=== PATIENT | female | born 1940 | race Caucasian/White ===

== ENCOUNTER → 2017-09-06 | Outpatient (CLI) | payer MEDICARE, OTHER ==
[~2017-09-06] MED LIST: ALEN70; ATEN25 PO; Benefiber98 GM PO; CELE200 PO; CYAN100; CYAN1000I; DIPATR PO; FENO145; FISH1000; FURO20; GABA300 PO; HYDACE5 PO; HYDR1TAB94 PO; LEVFLO500 PO; LEVSOD50; LISI10; MONT10T; MULVITA; NAPR500; OMEP20ER; PARO20; POTCHL10ER; PRED5 PO; PROM25 PO; Percocet 5-3251 EACH PO; Pravachol40 MG; ROSU10TA; RXHYDACE PO; RXPHEN200 PO; RXPROM25S PR; TOLT4; TRAM50; VITAMIN D-32000 UNIT
== END | disposition home or self-care (01) ==
LOC: LAB EV 12:35
DX: S91.101A Unspecified open wound of right great toe without damage to nail, initial encounter (principal)
CPT/HCPCS: 87070; 87205

== ENCOUNTER → 2018-06-30 | Outpatient (CLI) | payer MEDICARE, OTHER | END | disposition home or self-care (01) | LOC: LAB EV 17:53 → LAB SHORT 17:53 | DX: N39.0 Urinary tract infection, site not specified (principal) | CPT/HCPCS: 87077; 87086; 87186 ==

== ENCOUNTER → 2018-07-25 | Outpatient (CLI) | payer MEDICARE, OTHER ==
[2018-07-25 10:25] LABS: BASOPHILS ABSOLUTE AUTO 0.04 K/mm3 (0.00-0.23); BASOPHILS PERCENT AUTO 1 % (0-2); EOSINOPHILS ABSOLUTE AUTO 0.16 K/mm3 (0.00-0.68); EOSINOPHILS PERCENT AUTO 2 % (0-6); Hematocrit 38.1 % (33.0-51.0); Hemoglobin 12.5 g/dL (11.5-16.0); IMMATURE GRAN ABSOLUTE AUTO 0.02 K/mm3 (0.00-0.10); IMMATURE GRAN PERCENT AUTO 0 % (0-1); LYMPHOCYTES ABSOLUTE AUTO 1.37 K/mm3 (0.84-5.20); LYMPHOCYTES PERCENT AUTO 20 % (21-46); MONOCYTES PERCENT AUTO 7 % (4-13); Mean Corpuscular HGB 30.3 pg (26.0-34.0); Mean Corpuscular HGB Conc 32.8 g/dL (31.5-36.5); Mean Corpuscular Volume 92 fL (80-100); Mean Platelet Volume 9.7 fL (9.1-12.4); NEUTROPHILS ABSOLUTE AUTO 4.87 K/mm3 (1.96-9.15); NEUTROPHILS PERCENT AUTO 70 % (41-73); Platelet Count 273 K/mm3 (150-400); RDW Coefficient Variation 12.1 % (11.7-14.2); RDW Standard Deviation 40.7 fL (35.1-46.3); Red Blood Cell Count 4.13 M/mm3 (3.80-5.20); White Blood Cell Count 6.96 K/mm3 (4.00-11.30)
[2018-07-25 13:53] LABS: Alanine Aminotransfer (ALT/SGP 16 U/L (12-78); Albumin, Blood 3.3 g/dL (3.4-5.0); Albumin/Globulin Ratio 0.9 (0.8-1.8); Alk Phos 70 U/L (40-126); Anion Gap 9 mmol/L (6-16); Aspartate Aminotrans (AST/SGOT 16 U/L (12-37); Bilirubin, Total 0.6 mg/dL (0.1-1.0); Blood Urea Nitrogen 14 mg/dL (8-24); Bun/Creatinine Ratio 15.7 (12.0-20.0); CO2, Blood 28 mmol/L (21-32); Calcium, Blood 8.7 mg/dL (8.5-10.1); Chloride, Blood 104 mmol/L (98-108); Creatinine, Blood 0.89 mg/dL (0.40-1.00); Globulin, Blood 3.5 g/dL (2.2-4.0); Glomerular Filtration Rate >60 (60-); Glucose, Blood 104 mg/dL (70-99); Potassium, Blood 4.1 mmol/L (3.5-5.5); Sodium, Blood 141 mmol/L (136-145); Total Protein, Blood 6.8 g/dL (6.4-8.2)
== END | disposition home or self-care (01) ==
LOC: LAB SHORT 10:19 → LAB EV 10:19
PROVIDERS: General Practice
DX: M35.3 Polymyalgia rheumatica (principal)
CPT/HCPCS: 80053; 85025; 85651; 86140; 87070

== ENCOUNTER → 2018-08-04 | Outpatient (CLI) | payer MEDICARE, OTHER ==
[2018-08-04 12:20] LABS: BASOPHILS ABSOLUTE AUTO 0.04 K/mm3 (0.00-0.23); BASOPHILS PERCENT AUTO 1 % (0-2); EOSINOPHILS ABSOLUTE AUTO 0.09 K/mm3 (0.00-0.68); EOSINOPHILS PERCENT AUTO 1 % (0-6); Hematocrit 39.2 % (33.0-51.0); Hemoglobin 12.9 g/dL (11.5-16.0); IMMATURE GRAN ABSOLUTE AUTO 0.02 K/mm3 (0.00-0.10); IMMATURE GRAN PERCENT AUTO 0 % (0-1); LYMPHOCYTES ABSOLUTE AUTO 1.16 K/mm3 (0.84-5.20); LYMPHOCYTES PERCENT AUTO 14 % (21-46); MONOCYTES ABSOLUTE AUTO 0.45 K/mm3 (0.16-1.47); MONOCYTES PERCENT AUTO 5 % (4-13); Mean Corpuscular HGB 30.5 pg (26.0-34.0); Mean Corpuscular HGB Conc 32.9 g/dL (31.5-36.5); Mean Corpuscular Volume 93 fL (80-100); Mean Platelet Volume 9.7 fL (9.1-12.4); NEUTROPHILS ABSOLUTE AUTO 6.53 K/mm3 (1.96-9.15); NEUTROPHILS PERCENT AUTO 79 % (41-73); Platelet Count 255 K/mm3 (150-400); RDW Coefficient Variation 12.6 % (11.7-14.2); RDW Standard Deviation 42.6 fL (35.1-46.3); Red Blood Cell Count 4.23 M/mm3 (3.80-5.20); White Blood Cell Count 8.29 K/mm3 (4.00-11.30)
[2018-08-04 12:33] LABS: Anion Gap 10 mmol/L (6-16); Blood Urea Nitrogen 13 mg/dL (8-24); Bun/Creatinine Ratio 13.4 (12.0-20.0); CO2, Blood 29 mmol/L (21-32); Calcium, Blood 9.2 mg/dL (8.5-10.1); Chloride, Blood 103 mmol/L (98-108); Creatinine, Blood 0.97 mg/dL (0.40-1.00); Glomerular Filtration Rate 56 (60-); Glucose, Blood 113 mg/dL (70-99); Potassium, Blood 4.1 mmol/L (3.5-5.5); Sodium, Blood 142 mmol/L (136-145); Troponin I <0.015 ng/mL (0.000-0.040)
== END | disposition home or self-care (01) ==
LOC: LAB EV 12:16 → LAB SHORT 12:16
PROVIDERS: Family Medicine
DX: I10 Essential (primary) hypertension (principal)
CPT/HCPCS: 80048; 84484; 85025

== ENCOUNTER 2018-08-24 18:36 | Emergency (ER) | payer MEDICARE, OTHER ==
[~2018-08-24] VITALS: Ht 154.9 cm; Wt 68.0 kg
[~2018-08-24 18:36] MED LIST changes: -LEVSOD50; +LEVSOD50 PO; +Norco 5-325 Ta1 EACH PO; +OMEPRAZOLE MAGN20 MG PO; +Prednisone20 MG PO
[2018-08-24] MEDS ORDERED: IRBESARTAN-HCT1 EACH PO (19:41)
[2018-08-24] MEDS ORDERED: HYDR-86 PO (19:42)
[2018-08-24] MEDS ORDERED: CYAN500 PO (19:44)
[2018-08-24] MEDS ORDERED: FISH OIL 1,2001 EACH PO (19:44)
[2018-08-24] MEDS ORDERED: CHOL10002 PO (19:45)
[2018-08-24] MEDS ORDERED: ZINC15 PO (19:46)
[2018-08-24] MEDS ORDERED: MAGNESIUM400 MG PO (19:46)
[2018-08-24] MEDS ORDERED: PRED5 PO (19:47)
[2018-08-24] MEDS ORDERED: Prednisone20 MG PO (19:56)
[2018-08-24] MEDS ORDERED: Percocet 5-3251 EACH PO (19:56)
== END 2018-08-24 20:05 | disposition home or self-care (01) ==
LOC: ER 18:36
DX: M35.3 Polymyalgia rheumatica (principal); Z88.0 Allergy status to penicillin; Z88.2 Allergy status to sulfonamides; Z88.5 Allergy status to narcotic agent; Z88.8 Allergy status to other drugs, medicaments and biological substances; Z79.899 Other long term (current) drug therapy; Z79.82 Long term (current) use of aspirin; Z79.52 Long term (current) use of systemic steroids; I10 Essential (primary) hypertension
CPT/HCPCS: 99283

== ENCOUNTER 2018-08-31 12:54 | Inpatient (IN) | payer MEDICARE, OTHER ==
[~2018-08-31] VITALS: Ht 154.9 cm; Wt 65.8 kg
[~2018-08-31 12:54] MED LIST changes: -CELE200 PO; +CHOL10002 PO; +CYAN500 PO; +FISH OIL 1,2001 EACH PO; +Galzin25 MG PO; +HYDR-86 PO; +IRBESARTAN-HCT1 EACH PO; +MAGNESIUM400 MG PO; -Pravachol40 MG
[2018-08-31 13:51] LABS: Source, Urine Catheter
[2018-08-31 14:02] LABS: Bilirubin, Urine Neg (Neg); Blood, Urine 1+ (Neg); Glucose Qualitative, Urine Neg (Neg); Ketones, Urine Neg (Neg); Leukocyte Esterase, Urine 3+ (Neg); Nitrite, Urine Pos (Neg); Protein, Urine 1+ (Neg); Specific Gravity, Urine 1.015 (1.003-1.022); Urobilinogen, Urine NORM (Normal)
[2018-08-31 14:05] LABS: BASOPHILS ABSOLUTE AUTO 0.02 K/mm3 (0.00-0.23); BASOPHILS PERCENT AUTO 0 % (0-2); EOSINOPHILS ABSOLUTE AUTO 0.22 K/mm3 (0.00-0.68); EOSINOPHILS PERCENT AUTO 2 % (0-6); Hemoglobin 11.9 g/dL (11.5-16.0); IMMATURE GRAN PERCENT AUTO 1 % (0-1); LYMPHOCYTES ABSOLUTE AUTO 3.01 K/mm3 (0.84-5.20); LYMPHOCYTES PERCENT AUTO 28 % (21-46); MONOCYTES ABSOLUTE AUTO 0.87 K/mm3 (0.16-1.47); MONOCYTES PERCENT AUTO 8 % (4-13); Mean Corpuscular HGB 29.5 pg (26.0-34.0); Mean Corpuscular HGB Conc 31.3 g/dL (31.5-36.5); Mean Corpuscular Volume 94 fL (80-100); Mean Platelet Volume 9.4 fL (9.1-12.4); NEUTROPHILS ABSOLUTE AUTO 6.74 K/mm3 (1.96-9.15); NEUTROPHILS PERCENT AUTO 62 % (41-73); Platelet Count 362 K/mm3 (150-400); RDW Coefficient Variation 12.9 % (11.7-14.2); RDW Standard Deviation 44.5 fL (35.1-46.3); Red Blood Cell Count 4.04 M/mm3 (3.80-5.20); White Blood Cell Count 10.96 K/mm3 (4.00-11.30)
[2018-08-31 14:16] LABS: Appearance, Urine Hazy (Clear); Color, Urine Yellow (P-Yellow)
[2018-08-31 14:24] LABS: Magnesium, Blood 2.3 mg/dL (1.6-2.4)
[2018-08-31 14:25] LABS: Alanine Aminotransfer (ALT/SGP 20 U/L (12-78); Albumin, Blood 2.7 g/dL (3.4-5.0); Albumin/Globulin Ratio 0.8 (0.8-1.8); Alk Phos 60 U/L (50-136); Anion Gap 9 mmol/L (6-16); Aspartate Aminotrans (AST/SGOT 8 U/L (12-37); Bilirubin, Total 0.5 mg/dL (0.1-1.0); Blood Urea Nitrogen 40 mg/dL (8-24); Bun/Creatinine Ratio 24.4 (12.0-20.0); CO2, Blood 22 mmol/L (21-32); CPK Creatine Kinase 16 U/L (26-193); Calcium, Blood 8.4 mg/dL (8.5-10.1); Chloride, Blood 101 mmol/L (98-108); Creatinine, Blood 1.64 mg/dL (0.40-1.00); Globulin, Blood 3.4 g/dL (2.2-4.0); Glomerular Filtration Rate 32 (60-); Glucose, Blood 102 mg/dL (70-99); Potassium, Blood 4.8 mmol/L (3.5-5.5); Sodium, Blood 132 mmol/L (136-145); Total Protein, Blood 6.1 g/dL (6.4-8.2); Troponin I <0.015 ng/mL (0.000-0.040)
[2018-08-31 14:36] LABS: Creatine Kinase MB <1.0 ng/mL (0.0-3.6); Creatine Kinase MB Index Unable to Calculate (0.0-4.0)
[2018-08-31 14:40] LABS: Base Excess Venous -3.7 mmol/L; Bicarbonate Venous 21.5 mmol/L (24.0-30.0); PCO2 Venous 41.8 mmHg (38-42); PO2 Venous 135 mmHg (38-42); pH Blood Venous 7.33 (7.34-7.37)
[2018-08-31 14:41] LABS: White Blood Cells, Urine 50-100 /hpf (0-5)
[2018-08-31 14:42] LABS: Red Blood Cells, Urine 0-2 /hpf (0-2); Squamous Epithelial Cells Many /hpf (Few)
[2018-08-31 14:43] LABS: Amorphous Light (0-Heavy); Bacteria Few /hpf; Mucus Light (0-Heavy)
[2018-08-31 14:44] LABS: Transitional Epithelial Cells Few /hpf (0-Rare)
[2018-08-31] MEDS ORDERED: PRAVASTATIN SOD10 MG PO (15:30)
[2018-08-31] MEDS ORDERED: CLON.1 PO (15:31)
[2018-08-31] MEDS ORDERED: IRBE150 PO (15:32)
[2018-08-31] MEDS ORDERED: CELE200 PO (15:32)
[2018-08-31] MEDS ORDERED: TRAZ50 PO (15:34)
[2018-08-31] MEDS ORDERED: CALCIUM PO (16:18)
[2018-08-31] MEDS ORDERED: PRED20 PO (16:19)
[2018-08-31] MEDS ORDERED: Percocet 5-3251 EACH PO (16:20)
--- NOTE | 2018-08-31 20:12 | NUR ---
24-HR URINE PT VOIDED. DISCARDING THIS VOID AND THEN STARTING 24 HR URINE NOW, 08/31 @ 1999.
[2018-09-01 05:16] LABS: BASOPHILS ABSOLUTE AUTO 0.01 K/mm3 (0.00-0.23); BASOPHILS PERCENT AUTO 0 % (0-2); EOSINOPHILS ABSOLUTE AUTO 0.03 K/mm3 (0.00-0.68); EOSINOPHILS PERCENT AUTO 0 % (0-6); Hematocrit 35.1 % (33.0-51.0); Hemoglobin 11.3 g/dL (11.5-16.0); IMMATURE GRAN ABSOLUTE AUTO 0.08 K/mm3 (0.00-0.10); IMMATURE GRAN PERCENT AUTO 1 % (0-1); LYMPHOCYTES ABSOLUTE AUTO 1.42 K/mm3 (0.84-5.20); LYMPHOCYTES PERCENT AUTO 12 % (21-46); MONOCYTES ABSOLUTE AUTO 0.71 K/mm3 (0.16-1.47); MONOCYTES PERCENT AUTO 6 % (4-13); Mean Corpuscular HGB 30.6 pg (26.0-34.0); Mean Corpuscular HGB Conc 32.2 g/dL (31.5-36.5); Mean Corpuscular Volume 95 fL (80-100); Mean Platelet Volume 9.4 fL (9.1-12.4); NEUTROPHILS PERCENT AUTO 81 % (41-73); Platelet Count 328 K/mm3 (150-400); RDW Coefficient Variation 12.8 % (11.7-14.2); Red Blood Cell Count 3.69 M/mm3 (3.80-5.20); White Blood Cell Count 11.95 K/mm3 (4.00-11.30)
[2018-09-01 05:43] LABS: Albumin, Blood 2.4 g/dL (3.4-5.0); Anion Gap 5 mmol/L (6-16); Blood Urea Nitrogen 27 mg/dL (8-24); CO2, Blood 25 mmol/L (21-32); Calcium, Blood 8.2 mg/dL (8.5-10.1); Chloride, Blood 109 mmol/L (98-108); Glomerular Filtration Rate 57 (60-); Glucose, Blood 115 mg/dL (70-99); Magnesium, Blood 2.2 mg/dL (1.6-2.4); Phosphorus, Blood 3.2 mg/dL (2.5-4.9); Potassium, Blood 4.7 mmol/L (3.5-5.5); Sodium, Blood 139 mmol/L (136-145); Troponin I <0.015 ng/mL (0.000-0.040)
[2018-09-01 05:47] LABS: Cortisol, AM 11.9 ug/dL (6.7-22.6)
[2018-09-01 05:48] LABS: Thyroid Stimulating Hormone 0.477 uIU/mL (0.360-4.800)
--- NOTE | 2018-09-01 05:54 | NUR ---
SHIFT SUMMARY: PT IS A&O, CALL LIGHT APPROP. 1 PER SBA TO [facility]. TELE IN PLACE; SINUS RICARDA @ 47 BPM PER HOSPICE COMMUNITY LIAISON. PER PT, HR IS NORMALLY LOW. HOWEVER, BP HAS BEEN INCONSISTENT FOR SEVERAL WKS PER PT. BP TONIGHT IS 149/60 AND 121/51. RESP E/U ON RA. CONSULT CALLED IN TO DR GUZMAN PER DR JOSEPH. MEGAN IN TO SEE PT THIS EVENING. 24-HR URINE COLLECTION STARTED 08/29 @ 1999. URINE IS CURRENTLY ON ICE. BLADDER SCAN SHOWS 364 ML. ORDERED TO CALL IF >[address] GUZMAN OF FINDINGS IN PERSON BUT THAT PT IS VOIDING FREQUENTLY AND DR GUZMAN GAVE NO FURTHER ORDERS. ORTHOSTATIC VITALS DONE. SMALL DROP BETWEEN [id number] VITALS; DOC IS AWARE. NS RUNNING @ 100 ML/HR. PT TO HAVE CT ANGIOGRAM OF KIDNEYS AND ADRENAL GLANDS; RENAL & BLADDER US; AND RENAL ARTERY DUPLEX SCAN TODAY. NO OTHER CHANGES TO REPORT. WILL CONT TO MONITOR AND PROVIDE CARE UNTIL PRESUMED BY ONCOMING RN.
--- NOTE | 2018-09-01 10:25 | NUR ---
PT TO IMAGING FOR CT SCAN VIA [facility]
[2018-09-02 05:31] LABS: Hematocrit 31.8 % (33.0-51.0); Hemoglobin 10.1 g/dL (11.5-16.0)
[2018-09-02 05:52] LABS: Albumin, Blood 2.4 g/dL (3.4-5.0); Anion Gap 7 mmol/L (6-16); Blood Urea Nitrogen 20 mg/dL (8-24); Bun/Creatinine Ratio 24.8 (12.0-20.0); CO2, Blood 23 mmol/L (21-32); Calcium, Blood 8.5 mg/dL (8.5-10.1); Chloride, Blood 111 mmol/L (98-108); Creatinine, Blood 0.81 mg/dL (0.40-1.00); Glomerular Filtration Rate >60 (60-); Glucose, Blood 97 mg/dL (70-99); Phosphorus, Blood 2.7 mg/dL (2.5-4.9); Potassium, Blood 4.6 mmol/L (3.5-5.5); Sodium, Blood 141 mmol/L (136-145)
--- NOTE | 2018-09-02 07:37 | NUR ---
SHIFT SUMMARY: NO ACUTE CHANGES TONIGHT. PT CONTINUES TO FEEL BETTER AND HAVE IMPROVED STRENGTH. TELE IN PLACE; SINUS RICARDA @ 53 BPM. 24-HR URINE COMPLETE AND SENT 09/02 @ 1999. INDEPENDENT TO [facility]. PERCOCET ADMNISTERED 2X FOR SHOULDER AND BACK PAIN. MAINTENANCE FLUIDS D/C'D THIS AM PER DR GUZMAN. WILL CONT TO MONITOR AND PROVIDE CARE UNTIL PRESUMED BY ONCOMING RN,
[2018-09-02 08:17] LABS: COMPLEMENT C3, SERUM 141 mg/dL (82-167); COMPLEMENT C3, SERUM 145 mg/dL (82-167); COMPLEMENT C4, SERUM 31 mg/dL (14-44)
[2018-09-02] MEDS ORDERED: MIDO5 PO (09:05)
[2018-09-02] MEDS ORDERED: CHOL10002 PO (09:05)
[2018-09-02] MEDS ORDERED: TRAZ50 PO (09:06)
[2018-09-02] MEDS ORDERED: CALC.25 PO (09:06)
[2018-09-02] MEDS ORDERED: PRED10 PO (09:07)
[2018-09-02] MEDS ORDERED: CLON.1 PO (09:11)
--- NOTE | 2018-09-02 11:46 | NUR ---
DISCHARGE THIS RN EXPLAINED DISCHARGE INSTRUCTIONS AND MEDICATIONS TO PT AND SHE REPORTS SHE UNDERSTANDS. PT WAS UPSET THAT THE PHYSICIAN STOPPED SOME OF HER MEDICATIONS FOR HER ARTHRITIS AND DECREASED MEDICATIONS FOR HER PMR. THIS RN ENCOURAGED PT TO CALL HER PRIMARY PHYSICIAN TO TALK WITH HIM ABOUT THE MEDICATION CHANGES. IV REMOVED WITHOUT DIFFICULTY. PT TRANSFERRED TO PRIVATE VEHICLE VIA WHEELCHAIR. PT'S BELONGINGS WITH PT AND PT'S DAUGHTER.
[2018-09-03 12:27] LABS: ANTI-DSDNA ANTIBODIES <1 IU/mL (0-9); RNP ANTIBODIES <0.2 AI (0.0-0.9); SJOGREN'S ANTI-SS-A <0.2 AI (0.0-0.9); SJOGREN'S ANTI-SS-B <0.2 AI (0.0-0.9); SMITH ANTIBODIES <0.2 AI (0.0-0.9)
[2018-09-04 07:14] LABS: ANTIGLOMERULAR BM AB 3 units (0-20)
[2018-09-04 13:07] LABS: ALDOS/RENIN RATIO <1.3 (0.0-30.0); ALDOSTERONE <1.0 ng/dL (0.0-30.0)
[2018-09-04 18:07] LABS: METANEPHRINE, UR 20 ug/L (Undefined)
[2018-09-05 00:08] LABS: METANEPHRINE, PL 12 pg/mL (0-62); NORMETANEPHRINE, PL 14 pg/mL (0-145)
[2018-09-08 13:07] LABS: ANA DIRECT Negative (Negative); ANTIMYELOPEROXIDASE (MPO) ABS <9.0 U/mL (0.0-9.0); ANTIPROTEINASE 3 (PR-3) ABS <3.5 U/mL (0.0-3.5); ATYPICAL PANCA <1:20 titer (Neg:<1:20); CYTOPLASMIC (C-ANCA) <1:20 titer (Neg:<1:20); PERINUCLEAR (P-ANCA) <1:20 titer (Neg:<1:20)
[2018-09-08 14:07] LABS: 25-HYDROXY, VITAMIN D 55 ng/mL (.); 25-HYDROXY, VITAMIN D-2 <1.0 ng/mL (.); 25-HYDROXY, VITAMIN D-3 54 ng/mL (.)
[2018-09-10 13:07] LABS: CREATININE, URINE 28.7 mg/dL (Not Estab.)
== END 2018-09-02 10:57 | disposition home or self-care (01) | DRG 314 ==
LOC: ER 12:54 → MEDS 16:56
PROVIDERS: Emergency Medicine; Internal Medicine Nephrology; ADMIT Family Medicine
DX: I95.9 Hypotension, unspecified (principal); N17.0 Acute kidney failure with tubular necrosis; N39.0 Urinary tract infection, site not specified; E87.1 Hypo-osmolality and hyponatremia; E21.3 Hyperparathyroidism, unspecified; B96.20 Unspecified Escherichia coli [E. coli] as the cause of diseases classified elsewhere; M35.3 Polymyalgia rheumatica; K21.9 Gastro-esophageal reflux disease without esophagitis; E03.9 Hypothyroidism, unspecified; I12.9 Hypertensive chronic kidney disease with stage 1 through stage 4 chronic kidney disease, or unspecified chronic kidney disease; N18.2 Chronic kidney disease, stage 2 (mild); E86.9 Volume depletion, unspecified; D64.9 Anemia, unspecified; E88.09 Other disorders of plasma-protein metabolism, not elsewhere classified
CPT/HCPCS: 36415; 71045; 74175; 76770; 80053; 80069; 81001; 81050; 82088; 82306; 82384; 82533; 82550; 82553; 82570; 82803; 83516; 83520; 83690; 83735; 83835; 83880; 83970; 84244; 84443; 84484; 84585; 85014; 85018; 85025; 85651; 86160; 86225; 86235; 86256; 87077; 87086; 87186; 93005; 93010; 93975; 96361; 96374; 96375; 99285-25; J0696; J1650; J1720; J1956; J7030; J7120; P9612; Q9967

== ENCOUNTER 2018-11-02 08:45 | Day surgery (SDC) | payer MEDICARE, OTHER ==
[~2018-11-02 08:45] MED LIST changes: +CALC.25 PO; +CALCIUM PO; +CELE200 PO; +CLON.1 PO; +IRBE150 PO; +MIDO5 PO; +PRAVASTATIN SOD10 MG PO; +PRED10 PO; +PRED20 PO; +TRAZ50 PO
[2018-11-02] MEDS ORDERED: OMEPRAZOLE20 MG PO ×2 (09:55→09:56)
--- NOTE | 2018-11-02 10:01 | NUR ---
PT WAITED 15 MINUTES AFTER SHOT WITH NO PROBLEMS.
== END 2018-11-02 09:35 | disposition home or self-care (01) ==
LOC: ATC 08:45
DX: E27.40 Unspecified adrenocortical insufficiency (principal); I12.9 Hypertensive chronic kidney disease with stage 1 through stage 4 chronic kidney disease, or unspecified chronic kidney disease; N18.2 Chronic kidney disease, stage 2 (mild); D63.1 Anemia in chronic kidney disease; Z79.899 Other long term (current) drug therapy
CPT/HCPCS: 36415; 80400; 82533; J0834

== ENCOUNTER → 2019-07-15 | Outpatient (CLI) | payer MEDICARE, OTHER ==
[~2019-07-15] MED LIST changes: +OMEPRAZOLE20 MG PO
== END | disposition home or self-care (01) ==
LOC: LAB SHORT 15:53 → PLD 15:53
DX: L82.1 Other seborrheic keratosis (principal)
CPT/HCPCS: 88305

== ENCOUNTER 2020-06-12 12:26 | Emergency (ER) | payer MEDICARE, OTHER ==
[~2020-06-12] VITALS: Ht 154.9 cm; Wt 63.5 kg
[2020-06-12] MEDS ORDERED: Millipred5 MG PO (16:23)
== END 2020-06-12 16:54 | disposition home or self-care (01) ==
LOC: ER 12:26
DX: M54.6 Pain in thoracic spine (principal); K21.9 Gastro-esophageal reflux disease without esophagitis; E03.9 Hypothyroidism, unspecified; I12.9 Hypertensive chronic kidney disease with stage 1 through stage 4 chronic kidney disease, or unspecified chronic kidney disease; N18.2 Chronic kidney disease, stage 2 (mild); Z87.891 Personal history of nicotine dependence; Z79.899 Other long term (current) drug therapy; Z79.52 Long term (current) use of systemic steroids; Z88.0 Allergy status to penicillin; Z88.2 Allergy status to sulfonamides; Z88.5 Allergy status to narcotic agent; Z88.8 Allergy status to other drugs, medicaments and biological substances
CPT/HCPCS: 36415; 72125; 72128; 96374; 99283-25; A9270-GY; J2405

== ENCOUNTER → 2020-06-21 | Outpatient (CLI) | payer MEDICARE, OTHER ==
[~2020-06-21] MED LIST changes: +Millipred5 MG PO
[2020-06-21 10:29] LABS: Source, Urine Clean Catch
[2020-06-21 12:47] LABS: Appearance, Urine Hazy (Clear); Bilirubin, Urine Neg (Neg); Blood, Urine 2+ (Neg); Color, Urine Yellow (P-Yellow); Glucose Qualitative, Urine Neg (Neg); Ketones, Urine Neg (Neg); Leukocyte Esterase, Urine 3+ (Neg); Nitrite, Urine Neg (Neg); Protein, Urine 1+ (Neg); Urobilinogen, Urine NORM (Normal)
[2020-06-21 13:22] LABS: Bacteria Many /hpf; Red Blood Cells, Urine Not Seen /hpf (0-2); Squamous Epithelial Cells Rare /hpf (Few); White Blood Cells, Urine TNTC /hpf (0-5)
== END | disposition home or self-care (01) ==
LOC: LAB 10:28 → LAB SHORT 10:28
PROVIDERS: Family Medicine
DX: R30.0 Dysuria (principal)
CPT/HCPCS: 81001; 87077; 87086; 87186

== ENCOUNTER → 2020-08-30 | Outpatient (CLI) | payer MEDICARE, OTHER | LOC: PLD 11:53 → LAB SHORT 11:53 | DX: D48.5 Neoplasm of uncertain behavior of skin (principal); Z88.0 Allergy status to penicillin; Z88.2 Allergy status to sulfonamides; Z88.5 Allergy status to narcotic agent | CPT/HCPCS: 88305 ==

== ENCOUNTER → 2020-12-04 | Outpatient (CLI) | payer MEDICARE, OTHER | END | disposition home or self-care (01) | LOC: LAB 16:50 → LAB SHORT 16:50 | DX: N39.0 Urinary tract infection, site not specified (principal) | CPT/HCPCS: 87077; 87086; 87186 ==

== ENCOUNTER 2022-03-30 08:59 | Emergency (ER) | payer MEDICARE, OTHER ==
[~2022-03-30] VITALS: Ht 154.9 cm; Wt 63.5 kg
[2022-03-30 09:35] LABS: Calcium, Ionized (POC) 1.17 mmol/L (1.10-1.46); Chloride (POC) 105 mmol/L (98-108); Creatinine (POC) 0.7 mg/dL (0.6-1.0); Glucose (ISTAT POC) 110 mg/dL (70-99); Hemoglobin (POC) 13.9 g/dL (12.0-16.0); Potassium (POC) 3.9 mmol/L (3.5-5.5); Sodium (POC) 140 mmol/L (135-148); Total CO2 (POC) 24 mmol/L (21-32)
[2022-03-30] MEDS ORDERED: PRED20 PO (10:43)
== END 2022-03-30 11:22 | disposition home or self-care (01) ==
LOC: ER 08:59
PROVIDERS: Emergency Medicine
DX: M19.071 Primary osteoarthritis, right ankle and foot (principal); Z87.891 Personal history of nicotine dependence
CPT/HCPCS: 36415; 80047; 85014; 93971; 96374; 99283-25; J1100

== ENCOUNTER → 2022-09-24 | Outpatient (CLI) | payer MEDICARE, OTHER | LOC: PLD 08:21 → LAB SHORT 08:21 | DX: D48.5 Neoplasm of uncertain behavior of skin (principal) | CPT/HCPCS: 88305 ==

== ENCOUNTER → 2022-10-16 | Outpatient (CLI) | payer MEDICARE, OTHER ==
[2022-10-17 17:47] LABS: Adenovirus F 40/41 Not Detected (NOT DETECT); Astrovirus Not Detected (NOT DETECT); Campylobacter Sp Not Detected (NOT DETECT); Cryptosporidium Not Detected (NOT DETECT); Cyclospora Cayetanensis Not Detected (NOT DETECT); E. Coli O157 Not Detected (NOT DETECT); Entamoeba Histolytica Not Detected (NOT DETECT); Enteroaggregative E. coli-EAEC Not Detected (NOT DETECT); Enteropathogenic E. coli-EPEC Not Detected (NOT DETECT); Enterotoxigenic E. coli-ETEC Not Detected (NOT DETECT); Giardia Lamblia Not Detected (NOT DETECT); Norovirus GI/GII Detected (NOT DETECT); Plesiomonas Shigelloides Not Detected (NOT DETECT); Rotavirus A Not Detected (NOT DETECT); Salmonella Sp Not Detected (NOT DETECT); Sapovirus Not Detected (NOT DETECT); Shiga Toxin-prod E. coli-STEC Not Detected (NOT DETECT); Shigella/Enteroin E. coli-EIEC Not Detected (NOT DETECT); Vibrio Cholerae Not Detected (NOT DETECT); Vibrio Sp Not Detected (NOT DETECT); Yersinia Enterocolitica Not Detected (NOT DETECT)
== END | disposition home or self-care (01) ==
LOC: LAB SHORT 07:00 → LAB 07:00
PROVIDERS: Family Medicine
DX: R19.7 Diarrhea, unspecified (principal)
CPT/HCPCS: 87507

== ENCOUNTER → 2023-07-21 | Outpatient (CLI) | payer MEDICARE, OTHER | LOC: LAB SHORT 12:00 → LAB 12:00 | DX: N39.0 Urinary tract infection, site not specified (principal) | CPT/HCPCS: 87077; 87086; 87186 ==

== ENCOUNTER → 2023-07-28 | Outpatient (CLI) | payer MEDICARE, OTHER | LOC: LAB SHORT 12:18 → LAB 12:18 | DX: L57.8 Other skin changes due to chronic exposure to nonionizing radiation (principal) | CPT/HCPCS: 88305; 88312 ==

== ENCOUNTER → 2023-08-01 | Outpatient (CLI) | payer MEDICARE, OTHER | LOC: LAB SHORT 16:09 → LAB 16:09 | DX: N39.0 Urinary tract infection, site not specified (principal) | CPT/HCPCS: 87077; 87086; 87186 ==

== ENCOUNTER 2023-12-10 19:26 | Inpatient (IN) | payer MEDICARE, OTHER ==
[~2023-12-10] VITALS: Ht 154.9 cm; Wt 65.8 kg
[~2023-12-10 19:26] MED LIST changes: +EUTHYROX50 MCG PO; -LEVSOD50 PO; +MAGNESIUM OXID500 MG PO; -MAGNESIUM400 MG PO; +OMEP20ER PO; +Pyridium100 MG PO; +VITAMIN D310 MC4 PO
[2023-12-10 20:12] LABS: Albumin/Globulin Ratio 0.7 (0.8-1.8); Bun/Creatinine Ratio 19.1 (12.0-20.0); Calcium, Blood 8.7 mg/dL (8.5-10.1); Creatinine, Blood 1.15 mg/dL (0.40-1.00); Globulin, Blood 4.1 g/dL (2.2-4.0); Potassium, Blood 4.5 mmol/L (3.5-5.5); Total Protein, Blood 7.1 g/dL (6.4-8.2)
[2023-12-10 20:13] LABS: BASOPHILS ABSOLUTE AUTO 0.04 K/mm3 (0.00-0.23); BASOPHILS PERCENT AUTO 0 % (0-2); EOSINOPHILS ABSOLUTE AUTO 0.03 K/mm3 (0.00-0.68); EOSINOPHILS PERCENT AUTO 0 % (0-6); Hematocrit 36.7 % (33.0-51.0); Hemoglobin 11.7 g/dL (11.5-16.0); IMMATURE GRAN PERCENT AUTO 1 % (0-1); LYMPHOCYTES ABSOLUTE AUTO 1.41 K/mm3 (0.84-5.20); LYMPHOCYTES PERCENT AUTO 11 % (21-46); MONOCYTES ABSOLUTE AUTO 1.16 K/mm3 (0.16-1.47); MONOCYTES PERCENT AUTO 9 % (4-13); Mean Corpuscular HGB 31.3 pg (26.0-34.0); Mean Corpuscular HGB Conc 31.9 g/dL (31.5-36.5); Mean Corpuscular Volume 98 fL (80-100); Mean Platelet Volume 9.1 fL (9.1-12.4); NEUTROPHILS ABSOLUTE AUTO 9.77 K/mm3 (1.96-9.15); NEUTROPHILS PERCENT AUTO 78 % (41-73); Platelet Count 310 K/mm3 (150-400); RDW Coefficient Variation 13.4 % (11.7-14.2); RDW Standard Deviation 48.7 fL (35.1-46.3); Red Blood Cell Count 3.74 M/mm3 (3.80-5.20); White Blood Cell Count 12.51 K/mm3 (4.00-11.30)
[2023-12-10 20:15] LABS: Source, Urine Straight Cath
[2023-12-10 20:23] LABS: Appearance, Urine Turbid (Clear); Bilirubin, Urine Neg (Neg); Blood, Urine 3+ (Neg); Color, Urine Yellow (P-Yellow); Glucose Qualitative, Urine Neg (Neg); Ketones, Urine 1+ (Neg); Leukocyte Esterase, Urine 3+ (Neg); Nitrite, Urine Pos (Neg); Protein, Urine 3+ (Neg); Specific Gravity, Urine 1.015 (1.003-1.022); Urobilinogen, Urine NORM (Normal)
[2023-12-10 20:37] LABS: Bacteria Many /hpf; Squamous Epithelial Cells Few /hpf (Few); White Blood Cells, Urine TNTC /hpf (0-5)
[2023-12-10] MEDS ORDERED: CefTRIAXone Sodium 1,000 MG in NS 100 ML IV ONE (21:50)
[2023-12-10] MEDS ORDERED: NS 1,000 ML IV SCH ×2 (21:50→22:50)
[2023-12-10] MEDS ORDERED: Ondansetron HCl 2 MG / ML 2ML Vial IV PRN (22:55)
[2023-12-10] MEDS ORDERED: Enoxaparin 40 MG/0.4 ML SYR SC SCH (23:00)
[2023-12-11 00:25] VITALS: BP 146/60
[2023-12-11 04:52] LABS: BASOPHILS ABSOLUTE AUTO 0.03 K/mm3 (0.00-0.23); BASOPHILS PERCENT AUTO 0 % (0-2); EOSINOPHILS ABSOLUTE AUTO 0.03 K/mm3 (0.00-0.68); EOSINOPHILS PERCENT AUTO 0 % (0-6); Hemoglobin 11.2 g/dL (11.5-16.0); IMMATURE GRAN ABSOLUTE AUTO 0.06 K/mm3 (0.00-0.10); IMMATURE GRAN PERCENT AUTO 1 % (0-1); LYMPHOCYTES ABSOLUTE AUTO 1.16 K/mm3 (0.84-5.20); LYMPHOCYTES PERCENT AUTO 12 % (21-46); MONOCYTES ABSOLUTE AUTO 0.54 K/mm3 (0.16-1.47); MONOCYTES PERCENT AUTO 6 % (4-13); Mean Corpuscular HGB 30.9 pg (26.0-34.0); Mean Corpuscular HGB Conc 31.1 g/dL (31.5-36.5); Mean Corpuscular Volume 99 fL (80-100); Mean Platelet Volume 8.9 fL (9.1-12.4); NEUTROPHILS ABSOLUTE AUTO 7.85 K/mm3 (1.96-9.15); NEUTROPHILS PERCENT AUTO 81 % (41-73); Platelet Count 243 K/mm3 (150-400); RDW Coefficient Variation 13.3 % (11.7-14.2); RDW Standard Deviation 49.6 fL (35.1-46.3); Red Blood Cell Count 3.62 M/mm3 (3.80-5.20); White Blood Cell Count 9.67 K/mm3 (4.00-11.30)
[2023-12-11] MEDS ORDERED: Hydrocortisone Sod Succinate 100 MG Vial IV SCH (05:00)
[2023-12-11 05:08] LABS: Albumin, Blood 2.7 g/dL (3.4-5.0); Albumin/Globulin Ratio 0.7 (0.8-1.8); Bilirubin, Total 0.9 mg/dL (0.1-1.0); Bun/Creatinine Ratio 18.4 (12.0-20.0); Calcium, Blood 8.1 mg/dL (8.5-10.1); Creatinine, Blood 1.14 mg/dL (0.40-1.00); Globulin, Blood 3.9 g/dL (2.2-4.0); Potassium, Blood 4.2 mmol/L (3.5-5.5); Total Protein, Blood 6.6 g/dL (6.4-8.2)
[2023-12-11 05:15] VITALS: BP 156/60
[2023-12-11] MEDS ORDERED: Omeprazole 20 MG CapCR PO SCH (06:00)
--- NOTE | 2023-12-11 06:26 | NUR ---
SHIFT SUMMARY: PATIENT ARRIVED ON FLOOR AT MIDNIGHT. FULLY ORIENTED, DEPRESSED, COOPERATIVE. WEAKNESS IN ALL FOUR LIMBS, OLD ABRASION ON RIGHT ELBOW. HISTORY OF FALLS AT HOME. PATIENT COMPLAINED OF PAIN FROM GENERALIZED ARTHRITIS.
[2023-12-11] MEDS ORDERED: Acetaminophen 325 MG TABLET PO PRN (06:45)
[2023-12-11 07:43] VITALS: BP 132/56
[2023-12-11] MEDS ORDERED: Polyethylene Glycol 3350 17 gm PO PRN (08:10)
[2023-12-11] MEDS ORDERED: CloNIDine 0.1 MG Tab PO SCH (09:00)
[2023-12-11] MEDS ORDERED: Calcitriol 0.25 MCG Cap PO SCH (09:00)
[2023-12-11] MEDS ORDERED: Lactobacil 2-S.Thermo-Bifido 1 1 Cap PO SCH (09:00)
[2023-12-11] MEDS ORDERED: ACET500 PO (09:46)
[2023-12-11] MEDS ORDERED: VITAMIN E180 MG PO (09:47)
[2023-12-11] MEDS ORDERED: HYDSUL200 PO (09:53)
[2023-12-11] MEDS ORDERED: Hydroxychloroquine Sulfate 200 MG Tab PO SCH (12:12)
[2023-12-11] MEDS ORDERED: HYDROcodone 5-APAP 325 TAB PO PRN (12:15)
[2023-12-11 16:57] VITALS: BP 125/54
--- NOTE | 2023-12-11 17:29 | NUR ---
SHIFT SUMMARY PATIENT ALERT AND INTERACTIVE. PATIENT VERY WEAK. PATIENT ATTEMPTED TO WORK WITH PT BUT WAS ONLY ABLE TO SIT AT BEDSIDE BECAUSE OF WEAKNESS AND FEELING DIZZY. PATIENT STATES THAT SHE HAS BLADDER/LOWER ABDOMINAL PAIN WITH MOVEMENT IN THE BED OR WHEN WALKING. FAMILY STATES THAT SHE HAS BEEN DEALING WITH UTI'S SINCE JULY. PATIENT VERBALIZING FRUSTRATIONS WITH CURRENT SITUATION AND FEELIING LIKE A BURDEN TO FAMILY BECAUSE OF REPEATED FALLS BECAUSE OF WEAKNESS. FAMILY VERY SUPPORTIVE OF PATIENT AND EAGER TO LOOK INTO DISCHARGE PLAN
[2023-12-11] MEDS ORDERED: PRED5 PO (17:46)
[2023-12-11 19:29] VITALS: BP 118/54
[2023-12-11] MEDS ORDERED: CefTRIAXone Sodium 1,000 MG in NS 100 ML IV SCH (21:00)
[2023-12-11] MEDS ORDERED: Docusate Sodium/Senna 1 Tab PO SCH (21:00)
[2023-12-11] MEDS ORDERED: Mirtazapine 15 MG SoluTab PO SCH (21:00)
[2023-12-11] MEDS ORDERED: ESTRADIOL42.5 GM VAG (23:18)
[2023-12-12] MEDS ORDERED: PREDNISONE 5 MG (00:21)
[2023-12-12 04:37] VITALS: BP 131/61
[2023-12-12 05:05] LABS: Hematocrit 30.3 % (33.0-51.0); Hemoglobin 9.5 g/dL (11.5-16.0); Mean Corpuscular HGB 30.9 pg (26.0-34.0); Mean Corpuscular HGB Conc 31.4 g/dL (31.5-36.5); Mean Corpuscular Volume 99 fL (80-100); Mean Platelet Volume 8.9 fL (9.1-12.4); Platelet Count 225 K/mm3 (150-400); RDW Standard Deviation 46.8 fL (35.1-46.3); Red Blood Cell Count 3.07 M/mm3 (3.80-5.20); White Blood Cell Count 8.49 K/mm3 (4.00-11.30)
[2023-12-12 05:34] LABS: Albumin, Blood 2.3 g/dL (3.4-5.0); Anion Gap 10 mmol/L (3-11); Blood Urea Nitrogen 21 mg/dL (8-24); Bun/Creatinine Ratio 23.1 (12.0-20.0); CO2, Blood 23 mmol/L (21-32); Chloride, Blood 112 mmol/L (98-108); Creatinine, Blood 0.91 mg/dL (0.40-1.00); Glomerular Filtration Rate 63 (60-); Glucose, Blood 97 mg/dL (70-99); Magnesium, Blood 2.3 mg/dL (1.6-2.4); Phosphorus, Blood 1.8 mg/dL (2.5-4.9); Potassium, Blood 3.8 mmol/L (3.5-5.5); Sodium, Blood 141 mmol/L (136-145); Thyroxine (T4) 7.4 ug/dL (4.8-13.9)
[2023-12-12] MEDS ORDERED: Levothyroxine Sodium 0.05 MG Tab PO SCH (06:00)
--- NOTE | 2023-12-12 06:34 | NUR ---
NOC SHIFT SUMMARY PT WAS ABLE TO SLEEP WELL AFTER BEING MEDICATED WITH NORCO X1. SHE REPORTS FEELING MUCH BETTER THIS MORNING. SHE SAYS, "I FEEL SO MUCH BETTER THAN I HAVE IN SEVERAL DAYS. I THING THE ANTIBIOTICS ARE WORKING!" IVF SL. FALL PRECAUTIONS IN PLACE, BED ALARM ON, AND CALL LIGHT WITHIN REACH. PLAN HH VS SNF.
[2023-12-12 07:45] VITALS: BP 152/52
[2023-12-12] MEDS ORDERED: PredniSONE 20 MG Tab PO SCH (09:00)
[2023-12-12] MEDS ORDERED: Cholecalciferol 1000 Unit Tablet (=25MCG) PO SCH (09:00)
[2023-12-12 14:25] VITALS: BP 122/62
[2023-12-12 19:34] VITALS: BP 140/71
[2023-12-12] MEDS ORDERED: NS 250 ML IV PRN (20:10)
[2023-12-13 03:37] VITALS: BP 130/51
[2023-12-13 04:49] LABS: Hematocrit 28.8 % (33.0-51.0); Hemoglobin 9.2 g/dL (11.5-16.0); Mean Corpuscular HGB 31.3 pg (26.0-34.0); Mean Corpuscular HGB Conc 31.9 g/dL (31.5-36.5); Mean Corpuscular Volume 98 fL (80-100); Mean Platelet Volume 9.2 fL (9.1-12.4); Platelet Count 232 K/mm3 (150-400); RDW Coefficient Variation 12.8 % (11.7-14.2); RDW Standard Deviation 45.6 fL (35.1-46.3); RETICULOCYTE ABSOLUTE 0.0432 M/mm3 (0.0200-0.1100); RETICULOCYTE COUNT PERCENT 1.47 % (0.50-2.50); Red Blood Cell Count 2.94 M/mm3 (3.80-5.20); White Blood Cell Count 7.12 K/mm3 (4.00-11.30)
[2023-12-13 05:13] LABS: Albumin, Blood 2.3 g/dL (3.4-5.0); Anion Gap 7 mmol/L (3-11); Blood Urea Nitrogen 16 mg/dL (8-24); Bun/Creatinine Ratio 21.6 (12.0-20.0); CO2, Blood 25 mmol/L (21-32); Calcium, Blood 8.2 mg/dL (8.5-10.1); Chloride, Blood 113 mmol/L (98-108); Creatinine, Blood 0.74 mg/dL (0.40-1.00); Ferritin, Serum 361 ng/mL (8-252); Glomerular Filtration Rate 81 (60-); Glucose, Blood 139 mg/dL (70-99); Iron Serum 39 ug/dL (50-170); Percent Saturation 21.2 % (15.0-50.0); Phosphorus, Blood 1.7 mg/dL (2.5-4.9); Potassium, Blood 4.2 mmol/L (3.5-5.5); Sodium, Blood 141 mmol/L (136-145); Total Iron Binding Capacity 184 ug/dL (250-450)
--- NOTE | 2023-12-13 07:14 | NUR ---
ASSUMED CARE: PT RESTING QUIETLY AT THIS TIME. NSR ON TELE, RICARDA IN 40S WITH SLEEP. DENIES NEEDS OR CONCERNS AT THIS TIME.
--- NOTE | 2023-12-13 07:15 | NUR ---
SHIFT SUMMARY NOC PT A/O X 4. PLEASANT AND COOPERATIVE WITH CARE. VSS. NO ACUTE CHANGES TO REPORT. PT ON TELE SINUS RHYTHM IN 60'S WHILE AWAKE AND 40'S AND 50'S WHILE ASLEEP. PT HAS PUREWICK IN PLACE FOR FREQUENCY DUE TO UTI. PT ON BEDREST DUE TO BLE WEAKNESS. PT CURRENTLY RESTING WITH BED IN LOWEST POSITION, AND CALL LIGHT WITHIN REACH.
[2023-12-13 07:26] VITALS: BP 152/66
[2023-12-13] MEDS ORDERED: Hydrocortisone Sod Succinate 100 MG Vial IV SCH (09:00)
[2023-12-13] MEDS ORDERED: Norco 5-325 Ta1 EACH PO (09:52)
[2023-12-13] MEDS ORDERED: MIRT15ST PO (09:52)
[2023-12-13 10:59] LABS: SARS-Cov-2 (COVID-19) PCR, MMC NEGATIVE (NEGATIVE)
--- NOTE | 2023-12-13 15:18 | NUR ---
DISCHARGE: PT'S IV REMOVED WNL. PT TRANSFERRED TO WHEELCHAIR VIA LIFT. REPORT CALLED TO NURSE AT [facility]. DENIES FURTHER QUESTIONS OR CONCERNS. ESCORTED OUT VIA AMBULANCE STAFF.
--- NOTE | 2023-12-13 18:03 | NUR ---
[facility] CALLED BECAUSE PT'S FAMILY WAS ASKING ABOUT ABX ORDERS. CALL TO DR DAVALOS. ORDER FAXED TO [facility].
[2023-12-15] MEDS ORDERED: PredniSONE 20 MG Tab PO SCH (09:00)
[2023-12-17] MEDS ORDERED: PredniSONE 5 MG Tab PO SCH (09:00)
== END 2023-12-13 15:12 | DRG 872 ==
LOC: ER 19:26 → MEDS 22:49 → ENPENDDIS 12-13 10:14 → MEDS 12-13 15:12
PROVIDERS: Emergency Medicine; Internal Medicine; ADMIT Internal Medicine
DX: A41.9 Sepsis, unspecified organism (principal); N39.0 Urinary tract infection, site not specified; N17.9 Acute kidney failure, unspecified; N18.30 Chronic kidney disease, stage 3 unspecified; D63.1 Anemia in chronic kidney disease; E03.9 Hypothyroidism, unspecified; M35.3 Polymyalgia rheumatica; M19.90 Unspecified osteoarthritis, unspecified site; R29.6 Repeated falls; Z88.2 Allergy status to sulfonamides; Z88.0 Allergy status to penicillin; Z88.8 Allergy status to other drugs, medicaments and biological substances; Z86.73 Personal history of transient ischemic attack (TIA), and cerebral infarction without residual deficits; Z79.890 Hormone replacement therapy; Z79.899 Other long term (current) drug therapy; E86.0 Dehydration; Z79.52 Long term (current) use of systemic steroids; Z90.49 Acquired absence of other specified parts of digestive tract; Z90.710 Acquired absence of both cervix and uterus; Z98.890 Other specified postprocedural states; Z87.891 Personal history of nicotine dependence; G47.00 Insomnia, unspecified; B96.20 Unspecified Escherichia coli [E. coli] as the cause of diseases classified elsewhere
CPT/HCPCS: 36415; 80053; 80069; 81001; 82728; 83540; 83550; 83605; 83735; 83880; 84436; 84443; 84484; 85025; 85027; 85045; 87040; 87077; 87086; 87186; 93005; 93010; 97110; 97162; 97530; 99285-25; A9270; J0696; J1650; J1720; J7030; J7050; J7512; P9612; U0002

== ENCOUNTER → 2023-12-29 | Outpatient (CLI) | payer MEDICARE, OTHER ==
[~2023-12-29] MED LIST changes: +ACET500 PO; +ESTRADIOL42.5 GM VAG; +HYDSUL200 PO; +MIRT15ST PO; +PREDNISONE 5 MG; +VITAMIN E180 MG PO
== END ==
LOC: LAB SHORT 16:32 → LAB 16:32
DX: N39.0 Urinary tract infection, site not specified (principal)
CPT/HCPCS: 87077; 87086; 87186

== ENCOUNTER → 2024-03-17 | Outpatient (CLI) | payer MEDICARE, OTHER | END | disposition home or self-care (01) | LOC: LAB 15:37 → LAB SHORT 15:37 | DX: N39.0 Urinary tract infection, site not specified (principal) | CPT/HCPCS: 87086 ==

== ENCOUNTER → 2024-09-03 | Outpatient (CLI) | payer MEDICARE, OTHER | LOC: LAB 12:05 → LAB SHORT 12:05 | DX: R30.0 Dysuria (principal) | CPT/HCPCS: 87086 ==

== ENCOUNTER → 2024-10-28 | Outpatient (CLI) | payer MEDICARE, OTHER | LOC: LAB SHORT 16:53 → LAB 16:53 | DX: N39.0 Urinary tract infection, site not specified (principal) | CPT/HCPCS: 87086 ==

== ENCOUNTER → 2025-04-05 | Outpatient (CLI) | payer MEDICARE, OTHER | END | disposition home or self-care (01) | LOC: LAB SHORT 07:50 → LAB 07:50 | DX: R10.20 Pelvic and perineal pain unspecified side (principal) | CPT/HCPCS: 88305 ==

== ENCOUNTER 2025-05-06 10:38 | Emergency (ER) | payer MEDICARE, OTHER ==
[~2025-05-06] VITALS: Ht 154.9 cm; Wt 62.6 kg
[2025-05-06] MEDS ORDERED: Ketorolac Tromethamine 15mg Vial IV ONE (11:05)
[2025-05-06] MEDS ORDERED: Ondansetron HCl 2 MG / ML 2ML Vial IV ONE (11:05)
[2025-05-06 11:23] LABS: BASOPHILS ABSOLUTE AUTO 0.03 K/mm3 (0.00-0.23); BASOPHILS PERCENT AUTO 0 % (0-2); EOSINOPHILS ABSOLUTE AUTO 0.00 K/mm3 (0.00-0.68); EOSINOPHILS PERCENT AUTO 0 % (0-6); Hematocrit 39.3 % (33.0-51.0); Hemoglobin 13.0 g/dL (11.5-16.0); IMMATURE GRAN ABSOLUTE AUTO 0.04 K/mm3 (0.00-0.10); IMMATURE GRAN PERCENT AUTO 0 % (0-1); LYMPHOCYTES ABSOLUTE AUTO 0.43 K/mm3 (0.84-5.20); LYMPHOCYTES PERCENT AUTO 3 % (21-46); MONOCYTES ABSOLUTE AUTO 0.90 K/mm3 (0.16-1.47); MONOCYTES PERCENT AUTO 7 % (4-13); Mean Corpuscular HGB Conc 33.1 g/dL (31.5-36.5); Mean Corpuscular Volume 96 fL (80-100); NEUTROPHILS ABSOLUTE AUTO 11.94 K/mm3 (1.96-9.15); NEUTROPHILS PERCENT AUTO 90 % (41-73); NRBC ABSOLUTE 0.00 K/mm3 (0.00-0.02); NRBC Auto 0.0 /100 WBC (0.0-0.2); Platelet Count 209 K/mm3 (150-400); RDW Coefficient Variation 12.9 % (11.7-14.2); RDW Standard Deviation 45.1 fL (35.1-46.3)
[2025-05-06 11:48] LABS: Alanine Aminotransfer (ALT/SGP 507.0 U/L (12-78); Albumin, Blood 3.4 g/dL (3.4-5.0); Albumin/Globulin Ratio 0.9 (0.8-1.8); Anion Gap 13.0 mmol/L (3-11); Aspartate Aminotrans (AST/SGOT 355.0 U/L (12-37); Bilirubin, Total 4.6 mg/dL (0.1-1.0); Blood Urea Nitrogen 17.0 mg/dL (8-24); CO2, Blood 22.0 mmol/L (21-32); Calcium, Blood 9.6 mg/dL (8.5-10.1); Chloride, Blood 104.0 mmol/L (98-108); Creatinine, Blood 0.9 mg/dL (0.40-1.00); Globulin, Blood 3.9 g/dL (2.2-4.0); Glucose, Blood 188.0 mg/dL (70-99); Potassium, Blood 3.9 mmol/L (3.5-5.5); Sodium, Blood 135.0 mmol/L (136-145); Total Protein, Blood 7.3 g/dL (6.4-8.2)
[2025-05-06 12:21] VITALS: BP 127/59
== END 2025-05-06 13:20 | disposition left against medical advice (07) ==
LOC: ER 10:38
PROVIDERS: Student in an Organized Health Care Education/Training Program
DX: R10.9 Unspecified abdominal pain (principal); Z53.29 Procedure and treatment not carried out because of patient's decision for other reasons
CPT/HCPCS: 80053; 83605; 83690; 85025; 96374; 96375; J1885; J2405

== ENCOUNTER 2025-06-02 17:54 | Emergency (ER) | payer MEDICARE, OTHER ==
[~2025-06-02] VITALS: Ht 154.9 cm; Wt 61.2 kg
[2025-06-02 18:52] LABS: BASOPHILS ABSOLUTE AUTO 0.04 K/mm3 (0.00-0.23); BASOPHILS PERCENT AUTO 0 % (0-2); EOSINOPHILS ABSOLUTE AUTO 0.03 K/mm3 (0.00-0.68); EOSINOPHILS PERCENT AUTO 0 % (0-6); Hematocrit 38.4 % (33.0-51.0); Hemoglobin 12.4 g/dL (11.5-16.0); IMMATURE GRAN ABSOLUTE AUTO 0.05 K/mm3 (0.00-0.10); IMMATURE GRAN PERCENT AUTO 0 % (0-1); LYMPHOCYTES ABSOLUTE AUTO 0.94 K/mm3 (0.84-5.20); LYMPHOCYTES PERCENT AUTO 8 % (21-46); MONOCYTES ABSOLUTE AUTO 0.81 K/mm3 (0.16-1.47); MONOCYTES PERCENT AUTO 6 % (4-13); Mean Corpuscular HGB Conc 32.3 g/dL (31.5-36.5); Mean Corpuscular Volume 95 fL (80-100); NEUTROPHILS ABSOLUTE AUTO 10.74 K/mm3 (1.96-9.15); NEUTROPHILS PERCENT AUTO 85 % (41-73); NRBC ABSOLUTE 0.00 K/mm3 (0.00-0.02); NRBC Auto 0.0 /100 WBC (0.0-0.2); Platelet Count 237 K/mm3 (150-400); RDW Coefficient Variation 13.4 % (11.7-14.2); RDW Standard Deviation 47.5 fL (35.1-46.3)
[2025-06-02 19:29] LABS: Alanine Aminotransfer (ALT/SGP 357.0 U/L (12-78); Albumin, Blood 3.6 g/dL (3.4-5.0); Albumin/Globulin Ratio 1.0 (0.8-1.8); Anion Gap 11.0 mmol/L (3-11); Aspartate Aminotrans (AST/SGOT 281.0 U/L (12-37); Bilirubin, Total 5.3 mg/dL (0.1-1.0); Blood Urea Nitrogen 25.0 mg/dL (8-24); CO2, Blood 25.0 mmol/L (21-32); Calcium, Blood 9.0 mg/dL (8.5-10.1); Chloride, Blood 103.0 mmol/L (98-108); Creatinine, Blood 1.19 mg/dL (0.40-1.00); Globulin, Blood 3.5 g/dL (2.2-4.0); Glucose, Blood 103.0 mg/dL (70-99); Magnesium, Blood 1.9 mg/dL (1.6-2.4); Phosphorus, Blood 2.2 mg/dL (2.5-4.9); Potassium, Blood 3.8 mmol/L (3.5-5.5); Sodium, Blood 135.0 mmol/L (136-145); Total Protein, Blood 7.1 g/dL (6.4-8.2)
[2025-06-02] MEDS ORDERED: FentaNYL Citrate 50 MCG/ML 2 ML Injection IV PRN (22:25)
[2025-06-02] MEDS ORDERED: NS 1,000 ML IV SCH (22:25)
[2025-06-02] MEDS ORDERED: CefTRIAXone Sodium 1,000 MG in NS 50 ML IV ONE (22:25)
[2025-06-02] MEDS ORDERED: Ondansetron HCl 2 MG / ML 2ML Vial IV ONE (22:30)
[2025-06-02 23:53] LABS: Source, Urine Clean Catch
[2025-06-02 23:56] LABS: Glucose Qualitative, Urine Neg (Neg); Ketones, Urine 3+ (Neg); Leukocyte Esterase, Urine 3+ (Neg); Protein, Urine 3+ (Neg); Specific Gravity, Urine 1.020 (1.003-1.022); Urobilinogen, Urine 1+ (Normal)
[2025-06-03 00:13] LABS: Bilirubin, Urine 1+ (Neg); Color, Urine Yellow (P-Yellow)
[2025-06-03 00:15] LABS: Red Blood Cells, Urine 0-2 /hpf (0-2); White Blood Cells, Urine TNTC /hpf (0-5)
[2025-06-03 01:00] VITALS: BP 148/59
== END 2025-06-03 01:25 | disposition short-term general hospital (02) ==
LOC: ER 17:54
PROVIDERS: Emergency Medicine; Physician Assistant
DX: K80.50 Calculus of bile duct without cholangitis or cholecystitis without obstruction (principal); I12.9 Hypertensive chronic kidney disease with stage 1 through stage 4 chronic kidney disease, or unspecified chronic kidney disease; N18.2 Chronic kidney disease, stage 2 (mild); Z87.891 Personal history of nicotine dependence; M19.90 Unspecified osteoarthritis, unspecified site; K21.9 Gastro-esophageal reflux disease without esophagitis; Z88.0 Allergy status to penicillin; Z88.2 Allergy status to sulfonamides; Z79.899 Other long term (current) drug therapy
CPT/HCPCS: 36415; 74177; 80053; 81001; 83605; 83690; 83735; 84100; 85025; 87040; 87077; 87086; 87186; 93005; 93010; 96365-59; 96375; 96376; 99285-25; J0696; J2405; J3010; J7030; Q9967